=== PATIENT | male | born 1975 | race Two or more races ===

== ENCOUNTER 2017-02-08 16:56 | Emergency (ER) | payer SELFPAY ==
[2017-02-08] MEDS ORDERED: IPRATROPIUM/ALBUTEROL 0.5-2.5 MG/3 ML AMPUL NEB ONE (19:08)
[2017-02-08] MEDS ORDERED: PREDNISONE 20 MG TABLET PO ONE (19:08)
[2017-02-08] MEDS ORDERED: IBUPROFEN 800 MG TABLET PO ONE (19:09)
--- NOTE | 2017-02-08 19:10 | ER Document Report ---
ED Medical Screen (RME) - General Chief Complaint: Asthma Exacerbation Stated Complaint: INSECT BITE Time Seen by Provider: 02/08/17 19:07 Mode of Arrival: Ambulatory Information source: Patient Notes: Patient presents complaining of asthma exacerbation for the past few days. Patient complains of left-sided chest discomfort that is worse with coughing. Patient also complains of insect bite to left lower extremity. Patient complains of left lower extremity pain. TRAVEL OUTSIDE OF THE [place] IN LAST 30 DAYS: No - Related Data Allergies/Adverse Reactions: No Known Allergies Allergy (Verified 02/08/17 16:57) Past Medical History - Social History Frequency of alcohol use: Heavy Drug Abuse: None Renal/ Medical History: Denies: Hx Peritoneal Dialysis Physical Exam - Vital signs Vitals: Temp Pulse Resp BP Pulse Ox 99.4 F 96 20 128/88 H 95 02/08/17 17:19 02/08/17 17:19 02/08/17 17:19 02/08/17 17:19 02/08/17 17:19 - Respiratory Breath sounds: Nonproductive cough, Wheezing - Diffuse wheezing bilaterally Course - Vital Signs Vital signs: Temp Pulse Resp BP Pulse Ox 99.4 F 96 20 128/88 H 95 02/08/17 17:19 02/08/17 17:19 02/08/17 17:19 02/08/17 17:19 02/08/17 17:19
[2017-02-08] MEDS ORDERED: ALBUTEROL SULFATE 0.083% NEB 2.5 MG/3 ML AMPUL NEB SCH (19:23)
--- NOTE | 2017-02-08 20:08 | RADIOLOGY REPORT (SQ) ---
EXAM DESCRIPTION: CHEST PA/LAT COMPLETED DATE/TIME: 02/08/2017 7:55 pm REASON FOR STUDY: cp, cough COMPARISON: February 2015 NUMBER OF VIEWS: Two view. TECHNIQUE: Frontal and lateral radiographic views of the chest acquired. LIMITATIONS: None. FINDINGS: LUNGS AND PLEURA: Peribronchial cuffing and interstitial changes. No consolidation, effus ion, or pneumothorax. MEDIASTINUM AND HILAR STRUCTURES: No masses. No contour abnormalities. HEART AND VASCULAR STRUCTURES: Heart normal in size and contour. No evidence for failure. BONES: No acute findings. HARDWARE: None in the chest. OTHER: No other significant finding. IMPRESSION: REACTIVE AIRWAY DISEASE VERSUS VIRAL SYNDROME. NO CONSOLIDATION. TECHNICAL DOCUMENTATION: JOB ID: [id number] [employer]- All Rights Reserved
--- NOTE | 2017-02-08 20:41 | EKG REPORT ---
SEVERITY:- NORMAL ECG - SINUS RHYTHM : Confirmed by: Toy Cisneros 08-Feb-2017 20:40:41
[2017-02-08] MEDS ORDERED: ALBUTEROL SULFATE 0.083% NEB 2.5 MG/3 ML AMPUL NEB ONE (22:24)
[2017-02-08] MEDS ORDERED: ALBUTEROL SULFATE HFA (90 MCG/PUFF) 8 GM MDI (1 MDI/ER DISP) IH PRN (22:25)
[2017-02-08] MEDS ORDERED: BENZONATATE 100 MG CAPSULE PO ONE (22:25)
--- NOTE | 2017-02-08 22:27 | ER Document Report ---
ED General - General Chief Complaint: Asthma Exacerbation Stated Complaint: INSECT BITE Time Seen by Provider: 02/08/17 19:07 Mode of Arrival: Ambulatory Notes: Patient is a 41-year-old male with a past medical history of asthma, heavy alcohol use, occasional tobacco use who presents with 3 days of a cough, increased shortness of breath and wheezing. Patient states he used an albuterol inhaler at home and it did not seem to help his symptoms which is what prompted him come to the emergency department today. Multiple sick contacts with similar symptoms. He has not seen a primary care doctor regarding today's concerns. He states exerting himself or coughing seems to worsen his symptoms. He denies any fever, vomiting or diarrhea. Notes he has had similar symptoms in the past with bronchitis and asthma exacerbations. TRAVEL OUTSIDE OF THE [place] IN LAST 30 DAYS: No - Related Data Allergies/Adverse Reactions: No Known Allergies Allergy (Verified 02/08/17 16:57) Past Medical History - General Information source: Patient - Social History Smoking Status: Current Some Day Smoker Frequency of alcohol use: Heavy Drug Abuse: None Lives with: Spouse/Significant other Family History: Reviewed & Not Pertinent Patient has suicidal ideation: No Patient has homicidal ideation: No Pulmonary Medical History: Reports: Hx Asthma Renal/ Medical History: Denies: Hx Peritoneal Dialysis Review of Systems - Review of Systems Notes: Constitutional: Negative for fever. HENT: Negative for sore throat. Eyes: Negative for visual changes. Cardiovascular: Negative for chest pain. Respiratory: Positive for shortness of breath and cough. Gastrointestinal: Negative for abdominal pain, vomiting or diarrhea. Genitourinary: Negative for dysuria. Musculoskeletal: Negative for back pain. Skin: Negative for rash. Neurological: Negative for headaches, weakness or numbness. 10 point ROS negative except as marked above and in HPI. Physical Exam - Vital signs Vitals: Temp Pulse Resp BP Pulse Ox 99.4 F 96 20 128/88 H 95 02/08/17 17:19 02/08/17 17:19 02/08/17 17:19 02/08/17 17:19 02/08/17 17:19 Interpretation: Normal Notes: PHYSICAL EXAMINATION: GENERAL: Well-appearing, well-nourished and in no acute distress. HEAD: Atraumatic, normocephalic. EYES: Pupils equal round and reactive to light, extraocular movements intact, sclera anicteric, conjunctiva are normal. ENT: nares patent, oropharynx clear without exudates. Moist mucous membranes. NECK: Normal range of motion, supple without lymphadenopathy LUNGS: Coarse breath sounds in all lung landaverde. There is prolonged expiratory wheezing in all lung landaver[place]. No respiratory distress. HEART: Regular rate and rhythm without murmurs ABDOMEN: Soft, nontender, normoactive bowel sounds. No guarding, no rebound. No masses appreciated. EXTREMITIES: Normal range of motion, no pitting or edema. No cyanosis. NEUROLOGICAL: No focal neurological deficits. Moves all extremities spontaneously and on command. PSYCH: Normal mood, normal affect. SKIN: Warm, Dry, normal turgor, no rashes or lesions noted. Course - Re-evaluation Re-evalutation: 02/08/17 22:26 Patient presents with a mild exacerbation of their baseline asthma. Mild wheezing at time of presentation but vitals do not show significant hypoxemia or tachypnea. No retractions. Clinical history is most consistent with an acute bronchitis that is likely trigger the underlying exacerbation of asthma. Patient did clinically improve after receiving nebulizers here in the emergency department. Chest x-ray without evidence of an acute pneumonia. Patient able to ambulate without any respiratory distress. Based on patient's overall reassuring assessment, I believe they are stable for outpatient management with steroids. I do not suspect an acute alternative pathology at this time based on history and exam including acute pulmonary embolus, ACS, pneumothorax, or aortic dissection. At this time will discharge with return precautions and follow-up recommendations. Verbal discharge instructions given a the bedside and opportunity for questions given. Medication warnings reviewed. Patient is in agreement with this plan and has verbalized understanding of return precautions and the need for primary care follow-up in the next 24-72 hours. 02/09/17 03:58 Time of discharge patient's heart rate was 128. The nurse did not inform me of this vital sign abnormality which I do suspect was secondary to patient receiving multiple rounds of bronchodilator therapies prior to discharge particularly because he was not tachycardic at time of presentation. - Vital Signs Vital signs: Temp Pulse Resp BP Pulse Ox 97.9 F 128 H 16 136/79 H 92 02/09/17 00:06 02/09/17 00:06 02/09/17 00:06 02/09/17 00:06 02/09/17 00:06 - Diagnostic Test Radiology reviewed: Image reviewed, Reports reviewed Radiology results interpreted by me: 02/08/17 22:26 Chest x-ray: No acute infiltrate or pneumothorax Discharge - Discharge Clinical Impression: Bronchitis Asthma exacerbation Qualifiers: Asthma severity: mild Asthma persistence: persistent Qualified Code(s): J45.31 - Mild persistent asthma with (acute) exacerbation Condition: Good Disposition: HOME, SELF-CARE Additional Instructions: You were seen for an asthma exacerbation. Your symptoms improved with treatment here in the emergency department. However, it is very important that you return to the emergency department immediately if you began to have worsening difficulty breathing that does not respond to your normal home nebulizers. You are also being sent home on a five-day course of steroids that you should start taking tomorrow. Please also follow closely with your primary care physician. you should also return to emergency department if you develop fever greater than 101, persistent cough, persistent vomiting, pass out, or any other symptoms that are concerning to you. Prescriptions: Benzonatate [Tessalon Perles 100 mg Capsule] 100 mg PO Q8HP PRN #40 capsule PRN Reason: Prednisone [Deltasone 20 mg Tablet] 3 tab PO DAILY 5 Days tablet Forms: Return to Work
[2017-02-09 00:07] VITALS: BP 136/79
== END 2017-02-09 00:07 | disposition home or self-care (01) ==
LOC: ER 16:56
DX: J40 Bronchitis, not specified as acute or chronic (principal); J45.31 Mild persistent asthma with (acute) exacerbation; R05 Cough; R06.02 Shortness of breath; F10.10 Alcohol abuse, uncomplicated; F17.200 Nicotine dependence, unspecified, uncomplicated
CPT/HCPCS: 93005; 94640; 99282; 71020; 93010; J7512; J3490; J7620